=== PATIENT | male | born 1935 | race Caucasian/White ===

== ENCOUNTER 2020-06-15 16:21 | Inpatient (IN) | payer OTHER ==
[~2020-06-15] VITALS: Ht 175.3 cm; Wt 102.6 kg
[2020-06-15 19:13] LABS: Basophils # (auto) 0.2 10 ^3/uL (0-0.2); Basophils % (auto) 1.5 % (0.0-2.0); Eosinophils # (auto) 0.2 10 ^3/uL (0-0.8); Eosinophils % (auto) 1.7 % (0.0-7.0); Hematocrit 44.3 % (41.0-53.0); Hemoglobin 14.9 g/dL (13.5-17.5); Lymphocytes # (auto) 1.5 10 ^3/uL (0.4-5.4); Lymphocytes % (auto) 13.6 % (10.0-50.0); Mean Corpuscular Hemoglobin 31.4 pg (28.0-32.0); Mean Corpuscular Hgb Conc. 33.7 g/dL (32.0-36.0); Mean Corpuscular Volume 93.2 fL (80.0-100.0); Monocytes # (auto) 1.1 10 ^3/uL (0-1.3); Monocytes % (auto) 10.7 % (0.0-12.0); Neutrophils # (auto) 7.8 10 ^3/uL (1.6-8.6); Neutrophils % (auto) 72.5 % (37.0-80.0); Nucleated Red Blood Cells % 0.1 %; Platelet Count (auto) 201 10^3/uL (140-450); Red Blood Cells 4.75 10^6/uL (4.5-5.90); White Blood Cell 10.7 10^3/uL (4.4-10.8)
[2020-06-15 19:25] LABS: INR 1.02 (0.9-1.15); Partial Thromboplastin Time 27.6 sec (23.0-31.2)
[2020-06-15 19:39] LABS: Alanine Aminotransferase 36 U/L (16-61); Albumin 3.4 g/dL (3.4-5.0); Anion Gap 8 (5-15); Aspartate Aminotransferase 25 U/L (15-37); BUN/Creatinine Ratio 24.7; Blood Urea Nitrogen 21 mg/dL (7-18); Calcium 8.5 mg/dL (8.5-10.1); Carbon Dioxide 25 mmol/L (21-32); Chloride 107 mmol/L (98-107); GFR African American 110 mL/min; GFR Non-African American 91 mL/min; Glucose 112 mg/dL (74-106); Potassium 3.8 mmol/L (3.5-5.1); Sodium 140 mmol/L (136-145)
[2020-06-15 19:44] LABS: Alkaline Phosphatase 69 U/L (45-117); Bilirubin, Total 0.4 mg/dL (0.2-1.0); Total Protein 7.4 g/dL (6.4-8.2)
[2020-06-15] MEDS ORDERED: AZITHROMYCIN 500MG/ 250ML 250 ML IV ONE (20:00)
[2020-06-15] MEDS ORDERED: methylPREDNISolone SOD SUCC 125 MG/2 ML VL IV ONE (20:00)
[2020-06-15] MEDS ORDERED: ZINC SULFATE 220mg CAP or TAB PO ONE (20:00)
[2020-06-15] MEDS ORDERED: ONDANSETRON HCL 4 MG/2 ML VIAL IV PRN (21:45)
[2020-06-15] MEDS ORDERED: NITROGLYCERIN 0.4 MG SL TAB SL PRN (21:45)
[2020-06-15] MEDS ORDERED: ALBUTEROL SULF 2.5 MG/0.5ML(0.5%) NEB SOLN NEB PRN (21:45)
[2020-06-15] MEDS ORDERED: MORPHINE SULF INJ 2 MG/ML SYRINGE 1ML IV PRN (21:45)
[2020-06-15] MEDS ORDERED: ACETAMINOPHEN 325 MG TAB PO PRN (21:45)
[2020-06-15] MEDS ORDERED: TEMAZEPAM 15 MG CAP PO PRN (21:45)
[2020-06-15] MEDS: ATORVASTATIN 20 MG TAB PO SCH (22:34)
[2020-06-15] MEDS: ASCORBIC ACID 500 MG TAB PO SCH (22:36)
[2020-06-15] MEDS: FAMOTIDINE 20 MG TAB PO SCH (22:36)
[2020-06-15] MEDS: CARVEDILOL 3.125 MG TAB PO SCH (22:38)
[2020-06-15 23:35] VITALS: BP 138/87
[2020-06-15] MEDS ORDERED: IOHEXOL 350 MG/ML 100ML IJ ONE (23:53)
[2020-06-16 03:30] VITALS: BP 138/87
[2020-06-16 05:28] VITALS: BP 154/90
[2020-06-16 05:51] LABS: Basophils # (auto) 0 10 ^3/uL (0-0.2); Basophils % (auto) 0.3 % (0.0-2.0); Eosinophils # (auto) 0 10 ^3/uL (0-0.8); Eosinophils % (auto) 0.1 % (0.0-7.0); Hematocrit 43.4 % (41.0-53.0); Hemoglobin 14.7 g/dL (13.5-17.5); Lymphocytes # (auto) 0.7 10 ^3/uL (0.4-5.4); Lymphocytes % (auto) 8.4 % (10.0-50.0); Mean Corpuscular Hemoglobin 31.7 pg (28.0-32.0); Mean Corpuscular Volume 93.4 fL (80.0-100.0); Monocytes # (auto) 0.2 10 ^3/uL (0-1.3); Neutrophils # (auto) 7.4 10 ^3/uL (1.6-8.6); Neutrophils % (auto) 89.2 % (37.0-80.0); Nucleated Red Blood Cells % 0.2 %; Platelet Count (auto) 178 10^3/uL (140-450); Red Blood Cells 4.65 10^6/uL (4.5-5.90); Red Cell Distribution Width 15.1 % (11.8-14.3); White Blood Cell 8.3 10^3/uL (4.4-10.8)
[2020-06-16 06:11] LABS: BUN/Creatinine Ratio 25.6; Calcium 8.8 mg/dL (8.5-10.1); Potassium 4.1 mmol/L (3.5-5.1)
[2020-06-16 08:37] VITALS: BP 141/82
[2020-06-16] MEDS ORDERED: ENOXAPARIN SOD 40 MG/0.4 ML SYRINGE SC SCH (10:00)
[2020-06-16] MEDS: cefTRIAXone 1GM/50ML D5W 50 ML IV SCH (10:04)
[2020-06-16] MEDS: AZITHROMYCIN 500MG/ 250ML 250 ML IV SCH (10:06)
[2020-06-16] MEDS: DexAMETHasone SOD PHOS 10MG/1ML VIAL INJ IV SCH (10:06)
[2020-06-16] MEDS: ZINC SULFATE 220mg CAP or TAB PO SCH (10:07)
[2020-06-16] MEDS: ASPirin 81 mg TAB PO SCH (10:07)
[2020-06-16] MEDS: CARVEDILOL 3.125 MG TAB PO SCH ×2 (10:08→21:38)
[2020-06-16] MEDS: ASCORBIC ACID 500 MG TAB PO SCH ×2 (10:08→21:38)
[2020-06-16] MEDS: FAMOTIDINE 20 MG TAB PO SCH ×2 (10:08→21:38)
[2020-06-16 12:45] VITALS: BP 126/70
[2020-06-16 16:17] VITALS: BP 121/70
[2020-06-16] MEDS ORDERED: ENOXAPARIN SOD 100 MG/1 ML SYRINGE SC SCH (18:00)
[2020-06-16] MEDS: ATORVASTATIN 20 MG TAB PO SCH (21:38)
[2020-06-16 22:00] VITALS: BP 136/67
[2020-06-17 05:19] VITALS: BP 141/76
[2020-06-17 08:37] VITALS: BP 147/97
[2020-06-17] MEDS: ZINC SULFATE 220mg CAP or TAB PO SCH (10:15)
[2020-06-17] MEDS: DexAMETHasone SOD PHOS 10MG/1ML VIAL INJ IV SCH (10:15)
[2020-06-17] MEDS: ASPirin 81 mg TAB PO SCH (10:15)
[2020-06-17] MEDS: cefTRIAXone 1GM/50ML D5W 50 ML IV SCH (10:15)
[2020-06-17] MEDS: AZITHROMYCIN 500MG/ 250ML 250 ML IV SCH (10:15)
[2020-06-17] MEDS: CARVEDILOL 3.125 MG TAB PO SCH ×2 (10:16→22:30)
[2020-06-17] MEDS: ASCORBIC ACID 500 MG TAB PO SCH ×2 (10:16→22:31)
[2020-06-17] MEDS: FAMOTIDINE 20 MG TAB PO SCH ×2 (10:16→22:31)
[2020-06-17] MEDS ORDERED: VERAPAMIL 2.5MG/ML INJ 2ML VIAL IV ONE (11:44)
[2020-06-17] MEDS ORDERED: MIDAZOLAM HCL 1MG/1ML-2 ML VIAL ONE (11:44)
[2020-06-17] MEDS ORDERED: ANGIOMAX 250 MG VIAL IV ONE (11:44)
[2020-06-17] MEDS ORDERED: fentaNYL CITRATE 100 MCG/2 ML VL ONE (11:44)
[2020-06-17] MEDS ORDERED: SODIUM CHL 0.9% 0 ML ONE (11:45)
[2020-06-17] MEDS ORDERED: LIDOCAINE 2%HCL (LOCAL ANESTH.) INJ 20ML MDV ONE (11:45)
[2020-06-17] MEDS ORDERED: IODIXANOL 320MG/ML 100ML BTL IV ONE (11:45)
[2020-06-17 12:49] VITALS: BP 131/81
[2020-06-17 15:34] LABS: Urine Bacteria NONE SEEN /hpf (None Seen); Urine Blood Negative /uL (Negative); Urine Specific Gravity 1.017 (1.001-1.035); Urine WBC <1 /hpf (0 - 3)
[2020-06-17 17:00] VITALS: BP 127/80
[2020-06-17 22:00] VITALS: BP 118/66
[2020-06-17] MEDS: ATORVASTATIN 20 MG TAB PO SCH (22:31)
[2020-06-18 05:00] VITALS: BP 132/75
[2020-06-18 09:00] VITALS: BP 146/61
[2020-06-18] MEDS: cefTRIAXone 1GM/50ML D5W 50 ML IV SCH (10:16)
[2020-06-18] MEDS: DexAMETHasone SOD PHOS 10MG/1ML VIAL INJ IV SCH (10:17)
[2020-06-18] MEDS: ZINC SULFATE 220mg CAP or TAB PO SCH (10:17)
[2020-06-18] MEDS: ASPirin 81 mg TAB PO SCH (10:17)
[2020-06-18] MEDS: AZITHROMYCIN 500MG/ 250ML 250 ML IV SCH (10:17)
[2020-06-18] MEDS: ASCORBIC ACID 500 MG TAB PO SCH (10:18)
[2020-06-18] MEDS: FAMOTIDINE 20 MG TAB PO SCH (10:18)
[2020-06-18] MEDS: CARVEDILOL 3.125 MG TAB PO SCH (10:18)
[2020-06-18 11:35] VITALS: BP 146/61
== END 2020-06-18 14:00 | disposition home or self-care (01) | DRG 286 ==
LOC: ER 16:21 → TELE-EAST 21:40
PROVIDERS: ADMIT Nurse Practitioner; ATTEND Internal Medicine Geriatric Medicine
PROC: 4A023N7 Measurement of Cardiac Sampling and Pressure, Left Heart, Percutaneous Approach (ICD-10-PCS; principal; 2020-06-17)
PROC: B211YZZ Fluoroscopy of Multiple Coronary Arteries using Other Contrast (ICD-10-PCS; 2020-06-17)
PROC: B215YZZ Fluoroscopy of Left Heart using Other Contrast (ICD-10-PCS; 2020-06-17)
PROC: B41FYZZ Fluoroscopy of Right Lower Extremity Arteries using Other Contrast (ICD-10-PCS; 2020-06-17)
DX: I25.110 Atherosclerotic heart disease of native coronary artery with unstable angina pectoris (principal); U07.1 COVID-19; J12.82 Pneumonia due to coronavirus disease 2019; I24.9 Acute ischemic heart disease, unspecified; I10 Essential (primary) hypertension; K74.60 Unspecified cirrhosis of liver; E11.9 Type 2 diabetes mellitus without complications; E78.5 Hyperlipidemia, unspecified; Z88.8 Allergy status to other drugs, medicaments and biological substances; Z87.891 Personal history of nicotine dependence; Z95.5 Presence of coronary angioplasty implant and graft
CPT/HCPCS: 36415; 71046; 71275; 80048; 80053; 81001; 82728; 83880; 84484; 85025; 85379; 85610; 85730; 86141; 86850; 86900; 86901; 87426; 93005; 93306; 96365; 96367; 96375; 99152; G0378; J0696; J1100; J2250; Q9967